=== PATIENT | female | born 1970 ===

== ENCOUNTER 2025-01-23 05:27 | Day surgery (SDC) | payer OTHER ==
[2025-01-18 10:35] LABS: BASO % 0.9 % (0.1-1.2); EOS # 0.16 (0.04-0.54); EOS % 2.3 % (0.7-7.0); HEMATOCRIT 35.2 % (34.1-44.9); LYMPH # 1.55 (1.18-3.74); LYMPH % 22.1 % (19.3-53.1); MEAN CORPUSCULAR HEMOGLOBIN 30.4 pg (25.6-32.2); MONO # 0.38 (0.24-0.82); MONO % 5.4 % (4.7-12.5); NEUT # 4.84 (1.56-6.13); PLATELET COUNT 408 K/uL (163-369); RED BLOOD COUNT 3.95 M/uL (3.93-5.22); RED CELL DISTRIBUTION WIDTH 13.8 % (11.6-14.4)
[2025-01-18 10:53] VITALS: BP 111/70
[2025-01-18 11:03] LABS: PH,URINE 6.5 (5.0-8.0); URINE APPEARANCE Clear; URINE BILIRRUBIN Negative (NEGATIVE); URINE BLOOD Negative; URINE COLOR Yellow; URINE GLUCOSE Negative (NEGATIVE); URINE KETONE Negative (NEGATIVE); URINE LEUKOCYTE Trace; URINE NITRATE Negative; URINE PROTEIN Trace (NEGATIVE); URINE UROBILINOGEN 0.2 E.U./dl
[2025-01-18 11:07] LABS: URINE BACTERIA 83.1 uL (0.0-1933); URINE EPITHELIAL CELLS 21.8 uL (0.0-38.8); URINE RBC 6.3 uL (0.0-20.8); URINE WBC 35.9 uL (0.0-23.2)
[2025-01-18 11:21] LABS: URINE CAST 0.14 uL (0.0-1.40)
[2025-01-18 11:22] LABS: INR 0.95; PARTIAL THROMBOPLASTIN TIME 27.2 SECONDS (22.0-34.0); PROTHROMBIN TIME 10.4 SECONDS (9.0-11.5)
[2025-01-18 12:01] LABS: ALBUMIN 3.5 gm/dL (3.4-5.0); BILIRUBIN TOTAL 0.39 mg/dL (0.3-1.2); CALCIUM 8.8 mg/dL (8.5-10.1); CREATININE SERUM 0.54 mg/dL (0.55-1.02); GFR 116.78; GLOBULINA 3.5 G/DL (2.4-3.5); POTASSIUM 3.16 mEq/L (3.5-5.1)
[~2025-01-23] VITALS: Ht 157.5 cm; Wt 52.2 kg
[~2025-01-23 05:27] MED LIST: ANASTROZOLE1 MG; IBANDRONATE3 MG/3 ML; LIPITOR40 M1; POTASSIUM ALUM10 GM; ZOLOFT50 MG PO
[2025-01-23] MEDS ORDERED: ONDANSETRON HCL 2 MG/ML VIAL IV ONE (13:15)
[2025-01-23] MEDS ORDERED: KETOROLAC TROMETHAMINE 30 MG VIAL IV ONE (13:15)
[2025-01-23] MEDS ORDERED: POVIDONE-IODINE 118 ML BOTT TOP ONE (13:30)
== END 2025-01-23 16:30 | disposition home or self-care (01) ==
LOC: CIR.AMB 05:27
PROVIDERS: ATTEND Obstetrics & Gynecology
DX: N95.2 Postmenopausal atrophic vaginitis (principal); N95.0 Postmenopausal bleeding